=== PATIENT | male | born 1970 | race Caucasian/White ===

== ENCOUNTER → 2018-12-31 | Outpatient (CLI) | payer OTHER, SELFPAY ==
[2018-12-31 17:11] LABS: Absolute Lymphocyte Count 2.48 X10^3/uL (0.83-4.51); Absolute Neutrophil Count 6.6 X10^3/uL (2.0-7.7); Basophil# 0.04 X10^3/uL; Basophil% 0.4 % (0-1); Eosinophil# 0.17 X10^3/uL; Eosinophils% 1.7 % (0-5); Hematocrit 42.4 % (40-54); Hemoglobin 13.6 g/dL (13.0-16.5); Lymphocyte # 2.48 X10^3/ul (4.0); Lymphocyte % 24.8 % (19-41); Mean Corp Hgb Conc 32.1 g/dL (32-36); Mean Corpuscular Hgb 29.1 pg (27.0-32.0); Mean Corpuscular Volume 90.6 fL (80-94); Mean Platelet Vol. 7.9 fl (6.2-12.0); Monocyte# 0.62 X10^3/uL; Monocyte% 6.2 % (0-10); NRBC Flagged by Analyzer 0 % (0-5); Neutrophil # 6.63 X10^3/uL (2.7-7.7); Neutrophil % 66.5 % (47-70); Platelet Count 287 K/mm3 (150-450); RBC Distribution Width CV 11.9 % (11.6-14.6); RBC Distribution Width SD 39.1 fl (35.1-43.9); Red Blood Count 4.68 M/mm3 (4.6-6.2)
[2018-12-31 17:25] LABS: Erythrocyte Sedimentation Rate 29 mm/hr (0-15)
== END | disposition home or self-care (01) ==
LOC: LAB 16:54
PROVIDERS: Referring Provider Physician Assistant Surgical; Visit Provider Physician Assistant Surgical
DX: M70.41 Prepatellar bursitis, right knee (principal)
CPT/HCPCS: 36415; 85025; 85652; 86141